=== PATIENT | female | born 1980 | race African-American/Black ===

== ENCOUNTER 2017-10-12 19:18 | Emergency (ER) | payer SELFPAY, BC ==
[2017-10-12] MEDS: HYDROcodone/APAP 5/325MG 1 TAB TABLET PO (20:22)
== END 2017-10-12 21:08 | disposition home or self-care (01) ==
LOC: ER 19:18
DX: S22.32XA Fracture of one rib, left side, initial encounter for closed fracture (principal); Z88.0 Allergy status to penicillin; W22.8XXA Striking against or struck by other objects, initial encounter; Y93.02 Activity, running; Y92.009 Unspecified place in unspecified non-institutional (private) residence as the place of occurrence of the external cause; Y99.8 Other external cause status
CPT/HCPCS: 71101; 99284-25